=== PATIENT | female | born 2005 | race Two or more races ===

== ENCOUNTER 2024-09-03 14:26 | Emergency (ER) | payer BC, SELFPAY ==
[2024-09-03 14:31] VITALS: BP 117/69; PULSE 66; TEMP 36.8; O2SAT 97; BMI 32.5
[2024-09-03 15:26] LABS: Basophils # 0.1 10^3/uL (0.0-0.1); Eosinophils % 0.5 %; Hematocrit 40.2 % (36-47); Lymphocytes # 2.4 10^3/uL (1.5-6.5); Lymphocytes % 28.4 %; Mean Corpuscular HGB Conc 30.6 g/dL (30-55); Mean Corpuscular Hemoglobin 25.2 pg (27-33); Mean Corpuscular Volume 82.2 fl (85-98); Mean Platelet Volume 10.6 fL (7.4-10.4); Monocytes # 0.5 10^3/uL (0.2-0.9); Monocytes % 5.6 %; Neutrophils # 5.35 10^3/uL (1.8-8.0); Neutrophils % 64.3 %; Nucleated Red Blood Cells % 0 %; Platelet Count 383 10^3/cmm (157-399); Red Blood Count 4.89 10^6/uL (3.85-5.65); Red Cell Distribution Width 14.5 % (12.1-15.1); White Blood Count 8.32 10^3/uL (4.5-13.0)
[2024-09-03 15:37] LABS: HCG, Serum Qual Negative (Negative)
[2024-09-03 15:43] LABS: Alanine Aminotransferase 9 U/L (0-33); Albumin Level 3.9 g/dL (3.5-5.2); Alkaline Phosphatase 85 U/L (35-105); Anion Gap 19.6 (5-19); Aspartate Amino Transferase 16 U/L (0-32); Blood Urea Nitrogen 9 mg/dL (6-20); Calcium 9.5 mg/dL (8.5-10.5); Carbon Dioxide 18 mmol/L (22-29); Chloride 99 mmol/L (98-107); Creatinine Clr Calc Pharmacy 136.1886; Globulin 3.6 g/dL (1.3-4.6); Glomerular Filtration Rate 106.7 mL/min (90-130); Glucose 128 mg/dL (65-115); Lipase 34 U/L (13-60); Osmolality Calculated 276 mOsm/kg (285-295); Potassium 3.6 mmol/L (3.5-5.1); Sodium 133 mmol/L (136-145); Total Bilirubin 0.2 mg/dL (0.15-1.2); Total Protein 7.5 g/dL (6.6-8.7)
[2024-09-03 16:07] LABS: Slide Review Slide Review Perform
--- NOTE | 2024-09-03 16:28 | CTR_ITS ---
PROCEDURE INFORMATION: Exam: CT Abdomen And Pelvis Without Contrast Exam date and time: 09/03/2024 5:35 PM Age: 19 years old Clinical indication: Other: Left flank pain; Additional info: L flank pain radiating into abdomen/pelvis; N/v TECHNIQUE: Imaging protocol: Computed tomography of the abdomen and pelvis without contrast. Radiation optimization: All CT scans at this facility use at least one of these dose optimization techniques: automated exposure control; mA and/or kV adjustment per patient size (includes targeted exams where dose is matched to clinical indication); or iterative reconstruction. COMPARISON: No relevant prior studies available. RADIATION DOSE METRICS: Total DLP (mGy-cm): 615.83 FINDINGS: Lungs: Visualized lung bases show no infiltrate or effusion. Liver: Normal. No mass. Gallbladder and biliary ducts: Normal. No calcified stones. No ductal dilation. Pancreas: Normal. No ductal dilation. Spleen: Normal. No splenomegaly. Adrenal glands: Normal. No mass. Kidneys and ureters: Subtle hyperdensity within the collecting structures of both kidneys suggests mild nephrolithiasis. Mild hydronephrosis of the left kidney is seen. No abnormal perinephric stranding. Stomach and bowel: No obstruction. No significant mucosal thickening. Moderate stool volume in the proximal half of the colon. Incomplete distension distal 3rd of the colon. Appendix: No evidence of appendicitis. Intraperitoneal space: No free fluid or ascites. No free air. Vasculature: Unremarkable. No abdominal aortic aneurysm. Lymph nodes: Unremarkable. No enlarged lymph nodes. Urinary bladder: Urinary bladder is not well distended with wall thickening likely secondarily. A 3 mm calcification or stone is seen within the posterior left aspect of the urinary bladder, likely where the left ureter empties into the urinary bladder. Reproductive: Unremarkable as visualized. Bones/joints: No acute findings. Soft tissues: Unremarkable. CT/CT kidney stone [id number] IMPRESSION: 1. 3 mm calcification or stone posterior left aspect of the urinary bladder, likely where the left ureter empties into the urinary bladder. Secondary mild obstructive uropathy on the left. 2. Subtle hyperdensity within the collecting structures of both kidneys suggesting mild nephrolithiasis. COMMENTS: Consistent with the [employer]'s Incidental Findings Committee white paper (J Am Robbin Radiol 2018): Any incidental renal lesion less than 1 cm or classified as too small to characterize, or any incidental cystic renal lesion characterized as simple-appearing, is likely benign. No follow-up imaging is recommended for these lesions per consensus recommendations based on imaging criteria.
--- NOTE | 2024-09-03 16:29 | ED_ITS ---
Documented by User: DERIAN Laurent 09/03/24 16:33 HPI - Abdominal Pain 2 General: Chief Complaint: Abdominal Pain Stated Complaint: side and abd pain Time Seen by Provider: 09/03/24 16:02 Source: patient Mode of arrival: ambulatory Limitations: no limitations History of Present Illness: Patient is a nice 19-year-old female presents to ED today with complaint of left flank pain wrapping around into her abdomen and into her pelvis. She states pain started abruptly and has been severe since onset. It is accompanied with nausea and vomiting. She has no history of kidney or ureter stones. She was reportedly diaphoretic in triage but this has resolved at time of my initial examination. She is not having any urinary symptoms. Vital signs are stable upon arrival. No rash or fevers. She has not noted any changes in bowel movements. Denies . MD elicited complaint: abdominal pain and flank pain Pertinent past history: none Onset (ago): hour(s) Pain Consistency: constant Location: LLQ, L flank, Suprapubic and Pelvis Severity: severe Quality: sharp Migration to: no migration Exacerbating factors: nothing Relieving factors: nothing Associated Symptoms: Reports nausea and vomiting; Denies change in bowel habits, chills, dysuria, fever(s), hematochezia, hematuria, hematemesis and melena Related Data Home Medications Medication Instructions Recorded Confirmed etonogestrel 0.12 mg-ethinyl 1 vag ring vaginal .MONTHLY 09/03/24 09/03/24 estradiol 0.015 mg/24 hr vaginal DIRECTED ring (NuvaRing) methylphenidate HCl 5 mg tablet 5 mg PO DAILY 09/03/24 09/03/24 Allergies Allergy/AdvReac Type Severity Reaction Status Date / Time clindamycin Allergy Unknown Verified 09/03/24 14:37 Review of Systems 2 Const: Denies: fever(s), chills, body aches, fatigue or malaise Card: Denies: chest pain Resp: Denies: dyspnea GI: Reports: abdominal pain, nausea and vomiting; Denies: hematemesis, change in bowel habits, hematochezia or melena : Reports: flank pain; Denies: difficulty voiding, dysuria, urinary frequency, urinary urgency, urinary hesitancy or hematuria Musc: Reports: back pain (L flank) Skin/Breast: Denies: rash Neuro: Reports: dizziness Physical Exam 2 Const: COMMON NORMALS: average body habitus, patient oriented x3, no limitations, healthy appearing, alert and well nourished GENERAL APPEARANCE: cooperative and in distress (appears uncomfortable secondary to pain) O RIENTATION/CONSCIOUSNESS: Yes awake, Yes oriented to person, Yes oriented to place and Yes oriented to time Eye: COMMON NORMALS: no scleral icterus Resp: COMMON NORMALS: normal respiratory effort and clear to auscultation bilaterally AUSCULTATION: clear to auscultation bilaterally Cardio: COMMON NORMALS: regular rate and regular rhythm RATE: regular rate RHYTHM: regular rhythm GI: COMMON NORMALS: Normal to inspection, nondistended, normoactive bowel sounds present, Soft to palpation, No hepatosplenomegaly present and no masses INSPECTION: Yes normal to inspection AUSCULTATION: Yes normoactive bowel sounds PALPATION: Yes Soft to palpation, Yes Tenderness to palpation present (GI) (LLQ, suprapubic), No Guarding due to palpation present (GI), No Rigid due to palpation and Yes No hepatosplenomegaly present : COMMON NORMALS: Yes no CVA tenderness (states it feels like it has moved down into abdomen/suprapubic) BLADDER/KIDNEY EXAM: Yes no CVA tenderness (states it feels like it has moved down into abdomen/suprapubic) Back/Pelvis: COMMON NORMALS: no CVA tenderness (states it feels like it has moved down into abdomen/suprapubic) and thoracic and lumbar spine normal to inspection Extremity: GENERAL: Yes normal exam except as noted Neuro: COMMON NORMALS: patient oriented x3, moves all extremities, no focal motor deficits, no sensory deficits noted and gait normal S ENSORIUM/ORIENTATION: Yes alert, Yes oriented to person, Yes oriented to place and Yes oriented to time Skin: COMMON NORMALS: no rashes or lesions noted GENERAL SKIN EXAM: no rashes or lesions noted Course 2 Vital Signs: Vital signs: Vital Signs Temperature 98.2 F 09/03/24 14:31 Pulse Rate 80 09/03/24 19:02 Blood Pressure 119/68 09/03/24 19:02 Pulse Oximetry 100 09/03/24 19:02 Oxygen Delivery Me thod Room Air 09/03/24 17:07 MDM - Abdominal Pain Lab Data 09/03/24 15:07 09/03/24 15:07 Labs/Radiology: Radiology Impressions Abdomen/Pelvis CT 09/03/24 16:28 IMPRESSION: 1. 3 mm calcification or stone posterior left aspect of the urinary bladder, likely where the left ureter empties into the urinary bladder. Secondary mild obstructive uropathy on the left. 2. Subtle hyperdensity within the collecting structures of both kidneys suggesting mild nephrolithiasis. COMMENTS: Consistent with the [employer]'s Incidental Findings Committee white paper (J Am Robbin Radiol 2018): Any incidental renal lesion less than 1 cm or classified as too small to characterize, or any incidental cystic renal lesion characterized as simple-appearing, is likely benign. No follow-up imaging is recommended for these lesions per consensus recommendations based on imaging criteria. Laboratory Results WBC 8.32 10^3/uL (4.5-13.0) 09/03/24 15:07 RBC 4.89 10^6/uL (3.85-5.65) 09/03/24 15:07 Hgb 12.30 g/dL (12.4-14.8) L 09/03/24 15:07 Hct 40.2 % (36-47) 09/03/24 15:07 MCV 82.2 fl (85-98) L 09/03/24 15:07 MCH 25.2 pg (27-33) L 09/03/24 15:07 MCHC 30.6 g/dL (30-55) 09/03/24 15:07 RDW 14.5 % (12.1-15.1) 09/03/24 15:07 Plt Count 383 10^3/cmm (157-399) 09/03/24 15:07 MPV 10.6 fL (7.4-10.4) H 09/03/24 15:07 Neut % (Auto) 64.3 % 09/03/24 15:07 Lymph % (Auto) 28.4 % 09/03/24 15:07 [place] % (Auto) 5.6 % 09/03/24 15:07 Eos % (Auto) 0.5 % 09/03/24 15:07 Baso % (Auto) 1.0 % 09/03/24 15:07 Neut # (Auto) 5.35 10^3/uL (1.8-8.0) 09/03/24 15:07 Lymph # (Auto) 2.4 10^3/uL (1.5-6.5) 09/03/24 15:07 [place] # (Auto) 0.5 10^3/uL (0.2-0.9) 09/03/24 15:07 Eos # (Auto) 0.0 10^3/uL (0.0-0.8) 09/03/24 15:07 Baso # (Auto) 0.1 10^3/uL (0.0-0.1) 09/03/24 15:07 Nucleated RBC % (auto) 0 % 09/03/24 15:07 Nucleated RBCs # 0.0 /100WBC 09/03/24 15:07 Sodium 133 mmol/L (136-145) L 09/03/24 15:07 Potassium 3.6 mmol/L (3.5-5.1) 09/03/24 15:07 Chloride 99 mmol/L (98-107) 09/03/24 15:07 Carbon Dioxide 18 mmol/L (22-29) L 09/03/24 15:07 Anion Gap 19.6 (5-19) H 09/03/24 15:07 BUN 9 mg/dL (6-20) 09/03/24 15:07 Creatinine 0.7 mg/dL (0.5-0.9) 09/03/24 15:07 GFR Calculation 106.7 mL/min (90-130) 09/03/24 15:07 Glucose 128 mg/dL (65-115) H 09/03/24 15:07 Calculated Osmolality 276 mOsm/kg (285-295) L 09/03/24 15:07 Calcium 9.5 mg/dL (8.5-10.5) 09/03/24 15:07 Total Bilirubin 0.2 mg/dL (0.15-1.2) 09/03/24 15:07 AST 16 U/L (0-32) 09/03/24 15:07 ALT 9 U/L (0-33) 09/03/24 15:07 Alkaline Phosphatase 85 U/L (35-105) 09/03/24 15:07 Total Protein 7.5 g/dL (6.6-8.7) 09/03/24 15:07 Albumin 3.9 g/dL (3.5-5.2) 09/03/24 15:07 Globulin 3.6 g/dL (1.3-4.6) 09/03/24 15:07 Lipase 34 U/L (13-60) 09/03/24 15:07 HCG, Qual Negative (Negative) 09/03/24 15:07 Urine Color Dark yellow (Yellow) A 09/03/24 16:40 Urine Appearance Clear (CLEAR) 09/03/24 16:40 Urine pH 6.0 (5-7) 09/03/24 16:40 Ur Specific [place] 1.028 (1.005-1.030) 09/03/24 16:40 Urine Protein 2+ (Negative) A 09/03/24 16:40 Urine Glucose (UA) Negative (Normal) 09/03/24 16:40 Urine Ketones 2+ (Negative) H 09/03/24 16:40 Urine Blood 3+ (Negative) A 09/03/24 16:40 Urine Nitrate Negative (Negative) 09/03/24 16:40 Urine Bilirubin Negative (Negative) 09/03/24 16:40 Urine Urobilinogen 1.0 mg/dL (Negative) 09/03/24 16:40 Ur Leukocyte Esterase Trace (Negative) A 09/03/24 16:40 Urine RBC >100 /hpf (0-2) H 09/03/24 16:40 Urine WBC 6-10 /hpf (0-5) 09/03/24 16:40 Ur Squamous Epith Cells 0-5 /hpf (0-5) 09/03/24 16:40 Amorphous Sediment Not Reportable 09/03/24 16:40 Urine Bacteria None seen /hpf (NONE) 09/03/24 16:40 Hyaline Casts 6.61 /lpf 09/03/24 16:40 Discharge Plan Discharge Patient Disposition: Home Clinical Impression: Ureterolithiasis Condition: Stable Prescriptions: No Action methylphenidate HCl 5 mg tablet 5 mg PO DAILY etonogestrel-ethinyl estradiol [NuvaRing] 0.12-0.015 mg/24 hr ring 1 vag ring VAGINAL .MONTHLY DIRECTED Discharge Orders: Discharge ED (Routine); Ordered 09/03/24 Ordered By: Austyn Sotelo Patient Instructions: Ureteral Stones (ED) Activity Restrictions/Additional Instructions: Take [place] for pain relief. Make sure to drink plenty of fluids. Follow-up with urology. Please return with any fevers, severe worsening of pain, or other concerning symptoms. Sign Out Sign Out Data: Patient Sign Out occurred on 09/03/24 at 17:08. Patient's care was discussed, and care was transferred from DERIAN Laurent to DERIAN Iglesias. Coding Level of Care Code ED Clinical Orthoptist for Chg Fwd Documented by User: DERIAN Iglesias 09/03/24 21:35 HPI - Abdominal Pain 2 General: Chief Complaint: Abdominal Pain Stated Complaint: side and abd pain Time Seen by Provider: 09/03/24 16:02 Related Data Home Medications Medication Instructions Recorded Confirmed etonogestrel 0.12 mg-ethinyl 1 vag ring vaginal .MONTHLY 09/03/24 09/03/24 estradiol 0.015 mg/24 hr vaginal DIRECTED ring (NuvaRing) methylphenidate HCl 5 mg tablet 5 mg PO DAILY 09/03/24 09/03/24 Allergies Allergy/AdvReac Type Severity Reaction Status Date / Time clindamycin Allergy Unknown Verified 09/03/24 14:37 Course 2 Vital Signs: Vital signs: Vital Signs Temperature 98.2 F 09/03/24 14:31 Pulse Rate 80 09/03/24 19:02 Blood Pressure 119/68 09/03/24 19:02 Pulse Oximetry 100 09/03/24 19:02 Oxygen Delivery Nm thod Room Air 09/03/24 17:07 MDM - Abdominal Pain Medical Decision Making Care of patient transferred to [place] by DERIAN Laurent. This patient had severe onset left-sided pain. Urinalysis did show blood, no evidence of acute infection. Lab work was unremarkable. CT evidence of kidney stone near left UVJ, patient had reported to me that voiding here in the ER she felt a pinching pain in her vagina and she thinks that she may have passed it. Pain was controlled with Toradol here give her a [place] to go home with, referred to urology for any further issues. There were no signs of obstructive uropathy or infected stone warranting call the urology at this time. Patient comfortable discharge home, stating her pain was much better. Discussed case with Dr. Mayo. Lab Data 09/03/24 15:07 09/03/24 15:07 Labs/Radiology: Radiology Impressions Abdomen/Pelvis CT 09/03/24 16:28 IMPRESSION: 1. 3 mm calcification or stone posterior left aspect of the urinary bladder, likely where the left ureter empties into the urinary bladder. Secondary mild obstructive uropathy on the left. 2. Subtle hyperdensity within the collecting structures of both kidneys suggesting mild nephrolithiasis. COMMENTS: Consistent with the [employer]'s Incidental Findings Committee white paper (J Am Robbin Radiol 2018): Any incidental renal lesion less than 1 cm or classified as too small to characterize, or any incidental cystic renal lesion characterized as simple-appearing, is likely benign. No follow-up imaging is recommended for these lesions per consensus recommendations based on imaging criteria. Laboratory Results WBC 8.32 10^3/uL (4.5-13.0) 09/03/24 15:07 RBC 4.89 10^6/uL (3.85-5.65) 09/03/24 15:07 Hgb 12.30 g/dL (12.4-14.8) L 09/03/24 15:07 Hct 40.2 % (36-47) 09/03/24 15:07 MCV 82.2 fl (85-98) L 09/03/24 15:07 MCH 25.2 pg (27-33) L 09/03/24 15:07 MCHC 30.6 g/dL (30-55) 09/03/24 15:07 RDW 14.5 % (12.1-15.1) 09/03/24 15:07 Plt Count 383 10^3/cmm (157-399) 09/03/24 15:07 MPV 10.6 fL (7.4-10.4) H 09/03/24 15:07 Neut % (Auto) 64.3 % 09/03/24 15:07 Lymph % (Auto) 28.4 % 09/03/24 15:07 [place] % (Auto) 5.6 % 09/03/24 15:07 Eos % (Auto) 0.5 % 09/03/24 15:07 Baso % (Auto) 1.0 % 09/03/24 15:07 Neut # (Auto) 5.35 10^3/uL (1.8-8.0) 09/03/24 15:07 Lymph # (Auto) 2.4 10^3/uL (1.5-6.5) 09/03/24 15:07 [place] # (Auto) 0.5 10^3/uL (0.2-0.9) 09/03/24 15:07 Eos # (Auto) 0.0 10^3/uL (0.0-0.8) 09/03/24 15:07 Baso # (Auto) 0.1 10^3/uL (0.0-0.1) 09/03/24 15:07 Nucleated RBC % (auto) 0 % 09/03/24 15:07 Nucleated RBCs # 0.0 /100WBC 09/03/24 15:07 Sodium 133 mmol/L (136-145) L 09/03/24 15:07 Potassium 3.6 mmol/L (3.5-5.1) 09/03/24 15:07 Chloride 99 mmol/L (98-107) 09/03/24 15:07 Carbon Dioxide 18 mmol/L (22-29) L 09/03/24 15:07 Anion Gap 19.6 (5-19) H 09/03/24 15:07 BUN 9 mg/dL (6-20) 09/03/24 15:07 Creatinine 0.7 mg/dL (0.5-0.9) 09/03/24 15:07 GFR Calculation 106.7 mL/min (90-130) 09/03/24 15:07 Glucose 128 mg/dL (65-115) H 09/03/24 15:07 Calculated Osmolality 276 mOsm/kg (285-295) L 09/03/24 15:07 Calcium 9.5 mg/dL (8.5-10.5) 09/03/24 15:07 Total Bilirubin 0.2 mg/dL (0.15-1.2) 09/03/24 15:07 AST 16 U/L (0-32) 09/03/24 15:07 ALT 9 U/L (0-33) 09/03/24 15:07 Alkaline Phosphatase 85 U/L (35-105) 09/03/24 15:07 Total Protein 7.5 g/dL (6.6-8.7) 09/03/24 15:07 Albumin 3.9 g/dL (3.5-5.2) 09/03/24 15:07 Globulin 3.6 g/dL (1.3-4.6) 09/03/24 15:07 Lipase 34 U/L (13-60) 09/03/24 15:07 HCG, Qual Negative (Negative) 09/03/24 15:07 Urine Color Dark yellow (Yellow) A 09/03/24 16:40 Urine Appearance Clear (CLEAR) 09/03/24 16:40 Urine pH 6.0 (5-7) 09/03/24 16:40 Ur Specific [place] 1.028 (1.005-1.030) 09/03/24 16:40 Urine Protein 2+ (Negative) A 09/03/24 16:40 Urine Glucose (UA) Negative (Normal) 09/03/24 16:40 Urine Ketones 2+ (Negative) H 09/03/24 16:40 Urine Blood 3+ (Negative) A 09/03/24 16:40 Urine Nitrate Negative (Negative) 09/03/24 16:40 Urine Bilirubin Negative (Negative) 09/03/24 16:40 Urine Urobilinogen 1.0 mg/dL (Negative) 09/03/24 16:40 Ur Leukocyte Esterase Trace (Negative) A 09/03/24 16:40 Urine RBC >100 /hpf (0-2) H 09/03/24 16:40 Urine WBC 6-10 /hpf (0-5) 09/03/24 16:40 Ur Squamous Epith Cells 0-5 /hpf (0-5) 09/03/24 16:40 Amorphous Sediment Not Reportable 09/03/24 16:40 Urine Bacteria None seen /hpf (NONE) 09/03/24 16:40 Hyaline Casts 6.61 /lpf 09/03/24 16:40 All radiology interpretation(s) finalized by discharge Discharge Plan Discharge Patient Disposition: Home Clinical Impression: Ureterolithiasis Condition: Stable Prescriptions: No Action methylphenidate HCl 5 mg tablet 5 mg PO DAILY etonogestrel-ethinyl estradiol [NuvaRing] 0.12-0.015 mg/24 hr ring 1 vag ring VAGINAL .MONTHLY DIRECTED Discharge Orders: Discharge ED (Routine); Ordered 09/03/24 Ordered By: Austyn Sotelo Patient Instructions: Ureteral Stones (ED) Activity Restrictions/Additional Instructions: Take [place] for pain relief. Make sure to drink plenty of fluids. Follow-up with urology. Please return with any fevers, severe worsening of pain, or other concerning symptoms. Sign Out Sign Out Data: Patient Sign Out occurred on 09/03/24 at 17:08. Patient's care was discussed, and care was transferred from DERIAN Laurent to DERIAN Iglesias. Coding Level of Care Code ED Clinical Orthoptist for [place]
[2024-09-03] MEDS: ondansetron 2 mg/ML SDV 2 mL 4 MG IVP (17:04)
[2024-09-03] MEDS: ketorolac 60 mg/2 mL INJ 30 MG IVP (17:04)
[2024-09-03 17:07] VITALS: PULSE 76; O2SAT 100
[2024-09-03 17:11] LABS: Bilirubin Urine Negative (Negative); Blood Urine 3+ (Negative); Glucose Urine UA Negative (Normal); Ketones Urine 2+ (Negative); Leukocyte Esterase Urine Trace (Negative); Nitrate Urine Negative (Negative); Protein Urine 2+ (Negative); Specific Gravity, Urine 1.028 (1.005-1.030); Urine Appearance Clear (CLEAR); Urine Color Dark Yellow (Yellow)
[2024-09-03 17:14] LABS: Add Urine Microscopic? YES; Bacteria Urine None Seen /hpf; Hyaline Casts Urine 6.61 /lpf; RBC Urine >100 /hpf (0-2); Squamous Epithelial Cell Urine 0-5 /hpf (0-5)
[2024-09-03 17:16] LABS: Add Urine Culture? Yes
[2024-09-03 19:02] VITALS: BP 119/68; PULSE 80; O2SAT 100
[2024-09-03] MEDS: HYDROcodone-acetaminophen 5-325 mg Tablet 1 TAB PO (19:05)
[2024-09-03] MEDS: HYDROcodone-acetaminophen 5-325 mg Tablet 2 TAB PO (19:05)
== END 2024-09-03 19:05 | disposition home or self-care (01) ==
PROVIDERS: Emergency Medicine; Emergency Provider Physician Assistant
DX: N20.1 Calculus of ureter (principal)
CPT/HCPCS: 36415; 74176; 80053; 81001; 83690; 84703; 85025; 87086; 96374; 96375; 99285; J1885; J2405